=== PATIENT | female | born 1995 | race Hispanic/Latino ===

== ENCOUNTER 2017-09-27 18:20 | Emergency (ER) | payer SELFPAY ==
[2017-09-27 19:38] LABS: HEMATOCRIT 37.8 % (36.0-47.0); HEMOGLOBIN 12.4 g/dl (12.0-16.0); MEAN CORPUSCULAR HGB CONC 32.8 g/dl (32.0-36.5); MEAN CORPUSCULAR VOLUME 91.5 fl (80.0-96.0); PLATELET COUNT, AUTOMATED 192 10^3/uL (150-450); RED BLOOD COUNT 4.13 10^6/uL (4.00-5.40); RED CELL DISTRIBUTION WIDTH 13.5 % (11.5-14.5)
[2017-09-27 19:43] LABS: AMORPHOUS SEDIMENT RFX SMALL (NEGATIVE); KETONE, URINE AUTO RFX NEGATIVE (NEGATIVE); LEUKOCYTE ESTERASE UR AUTO RFX NEGATIVE (NEGATIVE); NITRITE, URINE AUTO RFX NEGATIVE (NEGATIVE); RBC, URINE AUTO RFX 2 /HPF (0-3); SPECIFIC GRAVITY UR AUTO RFX 1.014 (1.002-1.035); SQUAM EPITHELIAL CELL UR AURFX 2 /HPF (0-6); WBC, URINE AUTO RFX 1 /HPF (0-3)
[2017-09-27 20:31] LABS: HCG, SERUM QUANTITATIVE 978 MIU/ML
== END 2017-09-27 22:17 | disposition home or self-care (01) ==
LOC: M ED 18:20
DX: O20.0 Threatened abortion (principal); Z3A.01 Less than 8 weeks gestation of pregnancy
CPT/HCPCS: 76801

== ENCOUNTER 2018-10-02 11:09 | Emergency (ER) | payer OTHER, SELFPAY ==
[~2018-10-02] VITALS: Ht 162.6 cm; Wt 61.8 kg
[2018-10-02] MEDS ORDERED: ONDANSETRON 4 MG ORAL DISINTEGRATING TAB (Q0162 PER 1MG) PO ONE (11:45)
[2018-10-02 12:09] LABS: INFLUENZA A AMPLIFICATION NEGATIVE (NEGATIVE); INFLUENZA B AMPLIFICATION NEGATIVE (NEGATIVE)
[2018-10-02] MEDS ORDERED: METOCLOPRAMIDE 10 MG TAB PO ONE (12:15)
[2018-10-02 12:34] LABS: BASO % 0.4 % (0.0-1.0); EOS % 0.3 % (0.0-3.0); HEMATOCRIT 39.2 % (36.0-47.0); HEMOGLOBIN 13.1 g/dl (12.0-15.5); LYMPH # 1.8 10^3/uL (1.5-6.5); LYMPH % 17.4 % (24.0-44.0); MEAN CORPUSCULAR HEMOGLOBIN 29.4 pg (27.0-33.0); MEAN CORPUSCULAR HGB CONC 33.4 g/dl (32.0-36.5); MEAN CORPUSCULAR VOLUME 87.9 fl (80.0-96.0); MONO # 0.5 10^3/uL (0.0-0.8); MONO % 4.9 % (0.0-5.0); NEUTROPHILS # 7.8 10^3/uL (1.8-7.7); NEUTROPHILS % 76.8 % (36.0-66.0); PLATELET COUNT, AUTOMATED 214 10^3/uL (150-450); RED BLOOD COUNT 4.46 10^6/uL (4.00-5.40); WHITE BLOOD COUNT 10.2 10^3/uL (4.0-10.0)
[2018-10-02 13:25] LABS: BLOOD UREA NITROGEN 8 MG/DL (7-18); CALCIUM LEVEL 8.9 MG/DL (8.5-10.1); CARBON DIOXIDE LEVEL 23 MEQ/L (21-32); CHLORIDE LEVEL 105 MEQ/L (98-107); CREATININE FOR GFR 0.62 MG/DL (0.55-1.30); GLOMERULAR FILTRATION RATE > 60.0 (>60); GLUCOSE, FASTING 76 MG/DL (70-100); HCG, SERUM QUANTITATIVE 72336 MIU/ML; POTASSIUM SERUM 3.6 MEQ/L (3.5-5.1); SODIUM LEVEL 136 MEQ/L (136-145)
[2018-10-02] MEDS ORDERED: REGL10TA6 PO (13:43)
[2018-10-02 13:49] VITALS: BP 113/69
== END 2018-10-02 13:59 | disposition home or self-care (01) ==
LOC: M ED 11:09
DX: O99.89 Other specified diseases and conditions complicating pregnancy, childbirth and the puerperium (principal); R11.2 Nausea with vomiting, unspecified; R19.7 Diarrhea, unspecified; R50.9 Fever, unspecified; R06.02 Shortness of breath; Z87.891 Personal history of nicotine dependence; Z3A.08 8 weeks gestation of pregnancy
CPT/HCPCS: 36415; 80048; 84702; 85025; 87502; 99284; Q0162

== ENCOUNTER → 2018-12-11 | Outpatient (CLI) | payer OTHER ==
[~2018-12-11] MED LIST: REGL10TA6 PO
--- NOTE | 2018-12-12 04:07 | REP ---
Clinical: Anatomical evaluation. Comparison: None . Findings: Examination demonstrates a single live intrauterine in transverse ( head to maternal right) presentation. motion is identified by technologist. Placenta is noted anterior and grade grade zero without evidence for placenta previa or abruption. Amniotic fluid volume is normal. Cervix measures 4.2 cm in length and appears closed. No evidence for nuchal cord. Technologist describes the uterus as partially septated. Gestational age by LMP 19 weeks 2 days with WANG 05/05/2019 . Gestational age by current measurements 19 weeks 2 days with WANG 05/05/2019 . FHR equals 153 beats per minute. BPD 4.6 cm 20 weeks 0 days HC 16.3 cm 19 weeks 1 day AC 13.0 cm 18 weeks 4 days FL 3.2 cm 19 weeks 6 days HL 2.6 cm 18 weeks 2 days HC/AC ratio 1.26 Estimated weight 270 grams ( 42nd percentile). Anatomical assessment demonstrates normal structures including cranium, choroid plexus, cavum, cerebellum/posterior fossa, lungs, four-chamber heart, diaphragm, stomach, cord insertion/three-vessel cord, kidneys/bladder, spine, and extremities. Impression: 1. Single live intrauterine in transverse lie. 2. Partially septated uterus. 3. Limited evaluation of the facial features and cardiac ventricular outflow tracts noted. Remainder of the anatomical assessment is complete and normal. Electronically Signed by Reno Lara MD 12/12/2018 03:59 A
== END ==
LOC: M RAD 11:08
PROVIDERS: ATTEND Advanced Practice Midwife
DX: Z34.82 Encounter for supervision of other normal pregnancy, second trimester (principal); Z3A.19 19 weeks gestation of pregnancy

== ENCOUNTER 2019-02-21 12:55 | Outpatient (CLI) | payer OTHER ==
[~2019-02-21] VITALS: Ht 162.6 cm; Wt 75.7 kg
[2019-02-21 13:15] VITALS: BP 132/76
--- NOTE | 2019-02-21 13:50 | NUR ---
[facility] L&D Outpatient Triage Note: S: Marjorie is a 23 y/o who presents to [facility] L&D Triage at 29+4 weeks via US on 03 OCT 2018. She reports increased vaginal dc that is yellow/green tinged. She denies constant leaking. She denies VB. No change in sexual partner/practice. She endorses excellent FM. Her is c/b velementous CI and IUGR in 8% w/ MFM f/u scheduled in 2 weeks. O: GEN: A&Ox3, NAD VSS/AF CV: RRR PUL: CTAB ABD: Gravid; NTTP EXT: NEG homans, NEG Edema FHR: 140 BL moderate variability; + accelerations; appropriate for EGA. No decelerations TOCO: No ctx SSE: closed os; neg pooling; moderate amount of frothy yellow-green dc; neg nitrozine Micro: + fungal elements; neg ferning; neg clue cells; neg trich A/P: 23 y/o G2L0 at 29+4 with VVC dx with microscopy. CAT I FHR; appropriate for gestational age. Treated with oral diflucan. Advised pt to RTC should she continue to have this dc >48 hours. Reviewed late gestation warning sings and return precautions. Reinforced importance of daily FMC's and to keep previously scheduled outpatient appointments. Pt reports understanding w/o questions/concerns.
[2019-02-21] MEDS ORDERED: PRENTAB9 PO (13:58)
[2019-02-21] MEDS ORDERED: FLUCONAZOLE 50MG TABLET PO ONE (15:00)
== END 2019-02-21 14:25 | disposition home or self-care (01) ==
LOC: M LDO 12:55
PROVIDERS: ATTEND Obstetrics & Gynecology
DX: O26.893 Other specified pregnancy related conditions, third trimester (principal); N89.8 Other specified noninflammatory disorders of vagina; Z3A.29 29 weeks gestation of pregnancy
CPT/HCPCS: 59025; G0378; G0463

== ENCOUNTER 2019-03-18 20:32 | Outpatient (CLI) | payer OTHER ==
[~2019-03-18] VITALS: Ht 162.6 cm; Wt 79.5 kg
[~2019-03-18 20:32] MED LIST changes: +PRENTAB9 PO
[2019-03-18 20:47] VITALS: BP 119/68
[2019-03-18 21:24] VITALS: BP 122/69
== END 2019-03-18 21:30 | disposition home or self-care (01) ==
LOC: M LDO 20:32
PROVIDERS: ATTEND Obstetrics & Gynecology
DX: O36.8131 Decreased fetal movements, third trimester, fetus 1 (principal); Z3A.33 33 weeks gestation of pregnancy
CPT/HCPCS: 59025; G0378; G0463

== ENCOUNTER → 2019-04-11 | Outpatient (CLI) | payer OTHER ==
[~2019-04-11] MED LIST changes: +ACET-683 PO; +DIBU10OI TOP; +IBUP80TA PO; +MAPA500T2 PO
--- NOTE | 2019-04-12 08:36 | REP ---
Clinical: Growth evaluation. Comparison: 12/21/2018 . Findings: Examination demonstrates a single live intrauterine in cephalic presentation. motion is identified by technologist. Placenta is noted the anterior and grade three without evidence for placenta previa or abruption. Amniotic fluid volume is lower limits of normal. Nuchal cord cannot be excluded. Gestational age by LMP 36 weeks 4 days with WANG 05/05/2019 . Gestational age by current measurements 35 weeks 4 days with WANG 05/12/2019 FHR equals 162 beats per minute. BPD 9.0 cm 36 weeks 2 days HC 32.2 cm 36 weeks 3 days AC 31.1 cm 35 weeks 0 days FL 7.0 cm 36 weeks 0 days HL 5.9 cm 34 weeks 1 day HC/AC ratio 1.04 Estimated weight 2705 grams ( 35th percentile). Amniotic fluid index: 5.0 cm (7.6 - 24.6) Umbilical cord SD ratio: 2.29 (0.76 - 2.76) Impression: 1. Single live advanced gestation in cephalic presentation demonstrating appropriate interval growth. 2. Amniotic fluid volume is below normal given range (SOHAN=5.0) Electronically Signed by Reno Lara MD 04/11/2019 02:52 P
== END ==
LOC: M RAD 14:06
PROVIDERS: ATTEND Obstetrics & Gynecology
DX: O36.5930 Maternal care for other known or suspected poor fetal growth, third trimester, not applicable or unspecified (principal); Z3A.36 36 weeks gestation of pregnancy

== ENCOUNTER 2019-04-27 09:31 | Inpatient (IN) | payer OTHER ==
[2019-04-27] VITALS (35 sets, daily range): BP systolic 121–162; BP diastolic 56–104
[~2019-04-27] VITALS: Ht 162.6 cm; Wt 86.4 kg
[~2019-04-27 09:31] MED LIST changes: -ACET-683 PO; -DIBU10OI TOP; -IBUP80TA PO; -MAPA500T2 PO
[2019-04-27] MEDS ORDERED: LACTATED RINGER'S 1000 ML IV STA (10:19)
[2019-04-27 10:47] LABS: HEMATOCRIT 34.7 % (36.0-47.0); HEMOGLOBIN 11.6 g/dl (12.0-15.5); MEAN CORPUSCULAR HGB CONC 33.4 g/dl (32.0-36.5); MEAN CORPUSCULAR VOLUME 92.8 fl (80.0-96.0); PLATELET COUNT, AUTOMATED 145 10^3/uL (150-450); RED BLOOD COUNT 3.74 10^6/uL (4.00-5.40)
[2019-04-27] MEDS ORDERED: MAPA500T2 PO (10:53)
[2019-04-27] MEDS ORDERED: LR 1,000 ML IV SCH (11:00)
[2019-04-27] MEDS ORDERED: FENTANYL 2MCG/ML ROPIVACAINE 0.2% IN 0.9% NACL 100ML IVBAG As Ordered ONE (11:04)
--- NOTE | 2019-04-27 11:37 | HPEPDOC ---
Obstetrical History & Physical General Date of Admission Apr 27, 2019 at 10:03 History of Present Illness 23yo at 38+6wks presents to LND c/o contractions since 1500 yesterday. She reports +FM and + bloody show; pt denies LOF. Pt's spouse present at bedside. 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 Pt's blood type A Positive, GBS Negative, HIV negative. Chief Complaint: Contractions, term Information Provided By: Patient Care Care: Good Care Dating Final EDC: May 05, 2019 Final EDC for Daily Update: May 05, 2019 Final EDC by: 1st trimester (US) Antepartum Course Height (inches): 64 Pre- weight (lbs.): 139 Admission Weight (lbs.): 189 Change in Weight (lbs.): 50 Past Medical History Past Obstetrical History : Past Obstetrical History: Multigravida (2017) Past Medical History Surgical History: Denies/None Family History Significant Family History: No pertinent family hx Social History Marital Status: Family situation: Spouse/partner home Psychosocial History: No pertinent psych hx Abuse Violence Screening Have you been hit/kicked/slapp: No Have you been sexually assault: No Imunizations Tdap status: current Allergies Coded Allergies: No Known Allergies (Unverified , 02/21/19) Medications Scheduled No.137/Iron/Folic Acd ( Vitamin Tablet) 1 Each Tablet, 1 TAB PO DAILY Miscellaneous Medications Acetaminophen (Mapap) 500 Mg Tablet, 1,000 MG PO Physical Examination Physical Examination GENERAL: Alert and oriented times three. BREAST: . ABDOMEN: Gravid and non-tender to touch. FETUS: Is vertex by sterile vaginal examination. HEART RATE: Regular rate and rhythm. LUNGS: Clear to auscultation. Laboratory Data 24H LABS Laboratory Tests 2 04/27/19 10:30: Nucleated Red Blood Cells % (auto) 0.0, Syphilis Serology NONREACTIVE 04/27/19 10:58: Serology Scanned Report Hepatitis B Testing CBC/BMP Laboratory Tests 04/27/19 10:30 Red Blood Count 3.74 L, Mean Corpuscular Volume 92.8, Mean Corpuscular Hemoglobin 31.0, Mean Corpuscular Hemoglobin Concent 33.4, Red Cell Distribution Width 13.5 Pertinent Laboratoy Data Blood Type: A+ RBC Antibody Screen: Negative HIV: Negative Hepatitis B: Negative Rapid Plasma Reagin: Nonreactive Rubella: Immune Varicella: Immune Chlamydia/Gonorrhea: Negative Group B Streptococcus: Negative Anatomy Ultrasound Ultrasound Date: December 28, 2018 Placenta Location: Anterior Normal Anatomy: No (velamentous cord insertion; partial bicornuate uterus versus sb septate uterus) Placenta Previa: No Other Ultrasounds [id number]: f/u at [facility]: 8%tile, suspected velamentous cord insertion [id number]: f/u at [facility]: fundal contour abnormality of the uterus, marginal cord insertion, 24%tile [id number]: f/u growth at [facility]: 35%tile, EFW 2705g Steroid Therapy Steroid Therapy: No Vaginal Examination Dilation: 6 cm Effacement: 90% Station: -2 Cervical Consistency: Soft Cervical Position: Anterior Presentation: Cephalic presentation Assessment Heart Rate (FHR): 145 Variability: Moderate Accelerations: Positive Decelerations: None Tocometer Contractions: Yes Frequency: regular Strength: palpated as moderate Assessment/Plan Assessment Marjorie is a 23yo P0 at 38+6wks in active labor, VTX, Category I FHT, HIV negative, GBS negative, blood type A Positive Plan Admit to LND, consented for labor and vaginal delivery PIV Start, admission labs drawn IV and PO hydration Epidural when desires Expectant management CEFM x2 Consult with OB as indicated reassess in 4 hours or sooner PRN LUPE ALAN CNM Apr 27, 2019 11:37
[2019-04-27] MEDS ORDERED: ePHEDrine SULFATE 25 MG/5 ML(5MG/ML) SYRINGE IV PRN (13:00)
[2019-04-27] MEDS ORDERED: LACTATED RINGER'S 1000 ML IV PRN (13:00)
[2019-04-27] MEDS ORDERED: EPIDURAL COMMENT XX SCH (13:00)
[2019-04-27] MEDS ORDERED: EPIDURAL/PCA KEYS XX PRN (13:00)
[2019-04-27] MEDS ORDERED: diphenhydrAMINE INJ 50MG/ML VIAL (J1200) IV PRN (13:00)
[2019-04-27] MEDS ORDERED: REFRIGERATOR IV KEYS XX PRN (13:00)
[2019-04-27] MEDS ORDERED: NALOXONE INJ 0.4 MG/1 ML VIAL (J2310) IV PRN (13:00)
[2019-04-27] MEDS ORDERED: ONDANSETRON 4MG/2ML VIAL (J2405) IV PRN (13:00)
[2019-04-27] MEDS ORDERED: FENTANYL/ROPIVACAINE/NACL BAG 100 ML EPIDURAL SCH (13:00)
[2019-04-27] MEDS ORDERED: LIDOCAINE 1% MDV 20ML VIAL As Ordered ONE (16:44)
[2019-04-27] MEDS ORDERED: BUTORPHANOL 2 MG/ML INJ (J0595) As Ordered ONE (16:52)
[2019-04-27] MEDS ORDERED: BUTORPHANOL 2 MG/ML INJ (J0595) IV ONE (17:00)
[2019-04-27] MEDS ORDERED: OXYTOCIN DRIP 30 UNITS in APPROPRIATE DILUENT 1 EA IV SCH (17:33)
[2019-04-27] MEDS ORDERED: IBUPROFEN 600 MG TAB PO PRN (17:45)
[2019-04-27] MEDS ORDERED: DIBUCAINE 1% OINTMENT 30GM TOP PRN (17:45)
[2019-04-27] MEDS ORDERED: LIDOCAINE 1% MDV 20ML VIAL INFIL ONE (17:45)
[2019-04-27] MEDS ORDERED: ACETAMINOPHEN TAB 650MG DOSE (2X325MG) PO PRN (17:45)
--- NOTE | 2019-04-27 17:54 | DNPDOC ---
[facility] Delivery Note Delivery Note DATE OF DELIVERY: 27 April 2019 at 1637 PREDELIVERY DIAGNOSIS: 38+6wks, spontaneous labor, marginal cord insertion. POST DELIVERY DIAGNOSIS: . PROCEDURE: CORRUGATOR MACHINE OPERATOR: PRAKASH Alan ANESTHESIA: Epidural. ESTIMATED BLOOD LOSS: 450mL. FINDINGS: 5 pound 13 ounce male , Score 9/9, nuchal cord times x1, loose and easily reduced. DELIVERY SUMMARY: Called to room around when pt was C/C/+2 with BBOW and desiring to push. Pt had a practice push and head descended well. AROM at 1555, clear fluid. Pt effectively pushed to deliver a viable male infant over a protected perineum. head delivered SON and restituted to LOT; loose nuchal cord x1 reduced with ease. Right anterior shoulder delivered with ease followed by left posterior shoulder, then remainder of body delivered to maternal abdomen. Placenta rapidly delivered spontaneously and appeared intact. Cord clamped x2 and cut by FOB; 3VC observed. Pitocin bolus started, Fundus firm, bleeding starting to reduced to WNL. EBL 450mL. Pt was in pain and uncontrollable shaking; pt offered 1mg of Stadol for pain control and she accepted. Once pt was comfortable after stadol I was able to inspect perineum, vagina, and cervix; this revealed a right labial laceration that was repaired with 4-0 chromic in usual fashion; and a left vaginal laceration repaired with 3-0 chromic in usual fashion; hemostasis achieved. Family bonding well; anticipate uncomplicated PP course. Placenta sent for pathology to confirm cord insertion. LUPE ALAN CNM Apr 27, 2019 17:54
[2019-04-27] MEDS: DOCUSATE SODIUM 100 MG CAP PO SCH (20:38)
[2019-04-27] MEDS: IBUPROFEN 800 MG TAB PO PRN (23:38)
[2019-04-28] MEDS: ACETAMINOPHEN 500 MG TAB PO PRN (02:49)
[2019-04-28 06:00] VITALS: BP 127/68
--- NOTE | 2019-04-28 07:07 | IPNPDOC ---
Progress Note Date of Service: Apr 28, 2019 Day#: 1 Progress Note SUBJECT: patient is a 23 yo s/p ppd #1. She has been ambulating, voiding spontaneously without issue and tolerating regular diet. Attempting breast feeding. Reports lochia is light. Patient is ambulating well. Denies any pain. Voiding and stooling without difficulty. undecided on contraceptive. OBJECTIVE: VITAL SIGNS: Within normal limits, afebrile. NAD Abdomen: Fundus firm at U-2. Soft, NTTP. LE: no edema/erythema/tendernes ASSESSMENT/PLAN: 23 yo day 1, doing well. contraceptive options counseling. continue ppc. encourage BF. anticipate d/c home on ppd #2. Yennifer, DO VS, I&O, 24H, Fishbone Vital Signs/I&O Vital Signs Date Time Temp Pulse Resp B/P (MAP) Pulse Ox O2 Delivery O2 Flow Rate FiO2 04/28/19 06:00 97.6 97 18 127/68 (87) I&O- Last 24 Hours up to 6 AM 04/28/19 06:00 Intake Total 1000 ml Output Total 900 ml Balance 100 ml Laboratory Data 24H LABS Laboratory Tests 2 04/27/19 10:30: Nucleated Red Blood Cells % (auto) 0.0, Syphilis Serology NONREACTIVE 04/27/19 10:58: Serology Scanned Report Hepatitis B Testing CBC/BMP Laboratory Tests 04/27/19 10:30 Red Blood Count 3.74 L, Mean Corpuscular Volume 92.8, Mean Corpuscular Hemoglobin 31.0, Mean Corpuscular Hemoglobin Concent 33.4, Red Cell Distribution Width 13.5 PETAR CORTES DO Apr 28, 2019 07:06
[2019-04-28] MEDS: DOCUSATE SODIUM 100 MG CAP PO SCH ×2 (09:45→21:00)
[2019-04-28] MEDS: FERROUS SULFATE 325MG TAB PO SCH (09:45)
[2019-04-28] MEDS: PRENATAL VITAMINS CHEWABLE TABLET PO SCH (09:45)
[2019-04-28] MEDS: IBUPROFEN 800 MG TAB PO PRN ×2 (09:46→23:06)
[2019-04-28 18:04] VITALS: BP 117/58
[2019-04-29] MEDS: ACETAMINOPHEN 500 MG TAB PO PRN (04:48)
[2019-04-29 06:00] VITALS: BP 108/55
--- NOTE | 2019-04-29 07:17 | DS.PDOC ---
Discharge Summary General Date of Admission Apr 27, 2019 at 10:03 Date of Discharge Apr 29, 2019 Discharge Summary HOSPITAL COURSE: Marjorie is a 23 yo G2 now P1 who underwent an uncomplicated on 27Apr2019 after being admitted for active labor. Her course has been unremarkable. On her day of discharge she met all appropriate discharge criteria. She was ambulating, voiding, tolerating a regular diet, had minimal lochia, and minimal pain. DISCHARGE MEDICATIONS: Please see below. ALLERGIES: Please see below. PHYSICAL EXAMINATION ON DISCHARGE: VITAL SIGNS: Please see below. GENERAL: AAOX3, sitting up in bed, NAD, pleasant and conversant ABDOMINAL EXAMINATION: Fundus firm at U-2. No fundal tenderness EXTREMITIES: No edema PSYCHIATRIC EXAMINATION: Affect appropriate. LABORATORY DATA: Please see below. ACTIVITY: Pelvic rest for 6 weeks. DIET: Regular DISCHARGE PLAN: Discharge home DISPOSITION: Discharge home on 29Apr2019. DISCHARGE INSTRUCTIONS: 1. Pelvic rest for 6 weeks. ITEMS TO FOLLOWUP ON ON OUTPATIENT: 1. appointment in 6 weeks DISCHARGE CONDITION: Stable. TIME SPENT ON DISCHARGE: Greater than 20 minutes. Rj Watt DO Vital Signs/I&Os Vital Signs Date Time Temp Pulse Resp B/P (MAP) Pulse Ox O2 Delivery O2 Flow Rate FiO2 04/29/19 06:00 99.2 88 18 108/55 (72) I&O- Last 24 Hours up to 6 AM 04/29/19 06:00 Intake Total 1000 ml Balance 1000 ml Discharge Medications Scheduled No.137/Iron/Folic Acd ( Vitamin Tablet) 1 Each Tablet, 1 TAB PO DAILY, (Reported) Miscellaneous Medications Acetaminophen (Mapap) 500 Mg Tablet, 1,000 MG PO, (Reported) Allergies Coded Allergies: No Known Allergies (Unverified , 02/21/19) RJ WATT DO Apr 29, 2019 07:17
[2019-04-29] MEDS ORDERED: ACET-683 PO (07:18)
[2019-04-29] MEDS ORDERED: IBUP80TA PO (07:18)
[2019-04-29] MEDS ORDERED: DIBU10OI TOP (07:18)
[2019-04-29] MEDS: PRENATAL VITAMINS CHEWABLE TABLET PO SCH (08:03)
[2019-04-29] MEDS: DOCUSATE SODIUM 100 MG CAP PO SCH (08:03)
[2019-04-29] MEDS: IBUPROFEN 800 MG TAB PO PRN (08:03)
[2019-04-29] MEDS: FERROUS SULFATE 325MG TAB PO SCH (08:03)
== END 2019-04-29 12:27 | disposition home or self-care (01) | DRG 807 ==
LOC: M LDO 09:31 → M LDI 10:03 → M OBS 20:00
PROVIDERS: ADMIT Registered Nurse Maternal Newborn; ATTEND Obstetrics & Gynecology
PROC: 10E0XZZ Delivery of Products of Conception, External Approach (ICD-10-PCS; principal; 2019-04-27)
PROC: 10907ZC Drainage of Amniotic Fluid, Therapeutic from Products of Conception, Via Natural or Artificial Opening (ICD-10-PCS; 2019-04-27)
PROC: 0HQ9XZZ Repair Perineum Skin, External Approach (ICD-10-PCS; 2019-04-27)
DX: O69.81X0 Labor and delivery complicated by cord around neck, without compression, not applicable or unspecified (principal); Z37.0 Single live birth; Z3A.38 38 weeks gestation of pregnancy; O70.0 First degree perineal laceration during delivery